=== PATIENT | male | born 1970 | race African-American/Black ===

== ENCOUNTER 2022-01-26 13:05 | Inpatient (IN) | payer OTHER, SELFPAY ==
--- NOTE | 2022-01-26 | ECG_ITS ---
Test Reason : MED CLEARANCE Blood Pressure : / mmHG Vent. Rate : 049 BPM Atrial Rate : 049 BPM P-R Int : 152 ms QRS Dur : 080 ms QT Int : 456 ms P-R-T Axes : 044 065 067 degrees QTc Int : 411 ms Sinus bradycardia Nonspecific T wave abnormality Abnormal ECG No previous ECGs available Referred By: Pat Urena Electronically Signed By:ROMAINE SMILEY MD
[2022-01-26 13:18] VITALS: BP 130/78; PULSE 73; O2SAT 98
--- NOTE | 2022-01-26 13:46 | ED.PSYCH ---
HPI - Psych General Stated Complaint: SI, NON MED COMPLIANT PER EMS Time Seen by Provider: 01/26/22 13:41 Source: patient and EMS Mode of arrival: EMS Limitations: no limitations History of Present Illness HPI Narrative: Patient comes to the emergency room via ambulance. Patient states that he has a lot of financial difficulties. Patient states that yesterday his full check was gone pain pills, patient became very depressed and was considering suicide. Patient drank 2 beers last night, trying to calm his anxiety. He woke up at 3 in the morning complaining of worsening anxiety and suicidal thoughts. This morning, patient went to the Behavioral Health office, where he was Section 12 due to SI statements and sent here by ambulance. Related Data Allergies Allergy/AdvReac Type Severity Reaction Status Date / Time No Known Allergies Allergy Verified 01/26/22 13:53 Review of Systems Review of Systems: Constitutional : No Weight loss, No Fever, No Chills, No Night Sweats, No Fatigue, No Malaise ENT/Mouth : No Hearing loss, No Ear Pain, No Nasal Congestion, No Sinus Pain, No Hoarseness, No sore throat, No Rhinorrhea, No Swallowing Difficulty Eyes: No Eye Pain, No Swelling, No Redness, No Foreign Body, No Discharge, No Vision Changes Cardiovascular : No Chest Pain, No SOB, No Dyspnea on Exertion, No Orthopnea, No Edema, No Palpitations Respiratory : No Cough, No Sputum, No Wheezing, No Smoke Exposure, No Dyspnea Gastrointestinal : No Nausea, No Vomiting, No Diarrhea, No Constipation, No abdominal Pain, No Hematochezia, No Melena Genitourinary : no irregular bleeding, No Dysuria, No Urinary Frequency, No Hematuria, No Urinary Incontinence, No Urgency, No Flank Pain, No Urinary Flow Changes, No Hesitancy Musculoskeletal : No joint pain, No Myalgias, No Joint Swelling Skin : No Skin Lesions, No rash Neuro : No Weakness, No Numbness, No Paresthesias, No Loss of Consciousness, No Dizziness, No Headache Psych : Complaining of anxiety and depression, suicidal ideation, no homicidal ideation Heme/Lymph: No Bruising, No Bleeding,No Lymphadenopathy Endocrine : No Polyuria, No Polydipsia, No Temperature Intolerance PMF Past Medical History Medical History (Updated 01/26/22 @ 13:56 by Pat Urena MD) Anxiety and depression Social History Social History Advance Directives: No Advance Directives Information Provided: Yes Physical Exam Const: Other: Appearance: Alert. Oriented X3. No acute distress. Eyes: Pupils equal, round and reactive to light. ENT: Pharynx normal. Neck: Normal inspection. Neck supple. No lymph nodes noted. No crepitus CVS: Normal heart rate and rhythm. Pulses normal. Normal S1 and S2 Respiratory: No respiratory distress. Breath sounds normal. No Wheezing. No rales Abdomen: Soft and nontender. No rigidity. No distention. Skin: Skin warm and dry. Normal skin color. Normal skin turgor. Extremities: No lower extremity edema. No Lacerations. No Rash Neuro: Oriented X 3. No motor deficit. No sensory deficit. Moving all extremities. No slurred speech. CN 2 through 12 grossly intact Psych: calm, cooperative, normal affect Course Course Course Narrative: Patient with Section 12 in the community. Bed search in progress through Patient remains calm and cooperative. physician observation started at 13:55 Discharge Plan Discharge Clinical Impression: Anxiety and depression, Suicidal ideation Patient Disposition: Still a Patient
[2022-01-26 13:54] VITALS: BP 140/84; PULSE 61; RESP 16; TEMP 36.7; O2SAT 98
[2022-01-26 14:14] LABS: MANUAL DIFF FLAG NO
[2022-01-26 14:17] LABS: Basophils Absolute Auto 0.1 X10*3/uL (0.0-0.2); Basophils Percent Auto 0.7 % (0-2); Eosinophils Absolute Auto 0.4 X10*3/uL (0.0-0.4); Eosinophils Percent Auto 3.2 % (0-4); Hematocrit 44.7 % (42.0-52.0); Hemoglobin 16.2 g/dl (14.0-18.0); Imm Gran Abs Auto 0.03 X10*3/uL (0.00-0.03); Imm Gran Pct Auto 0.3 % (0.0-0.4); Lymphocytes Absolute Auto 2.7 X10*3/uL (1.2-4.9); Lymphocytes Percent Auto 24.9 % (20-40); Mean Corpuscular HGB Conc 36.2 g/dl (31.0-36.0); Mean Corpuscular Hemoglobin 28.4 pg (27.0-33.0); Mean Corpuscular Volume 78.3 fL (80.0-98.0); Mean Platelet Volume 9.8 fL (9.4-12.4); Monocytes Absolute Auto 0.9 X10*3/uL (0.1-1.2); Monocytes Percent Auto 8.1 % (2-11); Neutrophils Absolute Auto 6.8 x10*3/uL (2.0-8.3); Neutrophils Percent Auto 62.8 % (45-73); Platelet Count 195 X10*3/uL (160-400); Red Blood Count 5.71 X10*6/uL (4.60-5.80); Red Cell Distribution Width 14.4 % (11.0-16.0); White Blood Count 10.8 X10*3/uL (4.8-10.8)
[2022-01-26 14:34] LABS: Alanine Aminotransferase 36 U/L (0-40); Albumin Level 4.6 g/dL (3.5-5.0); Alkaline Phosphatase 57 U/L (39-117); Anion Gap 16 (12-20); Aspartate Amino Transferase 48 U/L (5-37); Bilirubin Direct 0.4 mg/dL (0.0-0.5); Bilirubin Total 0.9 mg/dL (0.0-1.0); Blood Urea Nitrogen 10 mg/dL (9-16); COVID-19 Test Negative (Negative); Calcium 9.5 mg/dL (8.4-10.2); Carbon Dioxide 23 mmol/L (22-29); Chloride 103 mmol/L (96-108); Estimated Glomerular Filt Rate > 60; Ethanol < 10 mg/dL; Glucose Random 84 mg/dL (60-115); Potassium 3.7 mmol/L (3.3-5.1); Sodium 138 mmol/L (135-145); Total Protein 7.5 g/dL (6.5-8.0)
[2022-01-26 14:55] LABS: Appearance Urine CLEAR; Color Urine YELLOW; Glucose Urine UA NEG (NEG); Leukocyte Esterase Urine NEG (NEG); Nitrite Urine NEG (NEG); Specific Gravity - Urine <= 1.005 (1.005-1.025); Urine Blood NEG (NEG); Urine Ketones 5 MG/DL (NEG); Urine Protein NEG (NEG-TRACE)
[2022-01-26 15:06] LABS: Amphetamine Screen Urine Not Detected (Not Detect); Barbiturates, Urine Not Detected (Not Detect); Benzodiazepines Screen Urine POSITIVE (Not Detect); Cannabinoid Screen Urine Not Detected (Not Detect); Cocaine Screen Urine POSITIVE (Not Detect); Fentanyl, urine Not Detected (Not Detect); Opiate Screen Urine Not Detected (Not Detect); Phencyclidine Screen Urine Not Detected (Not Detect)
[2022-01-26 16:46] VITALS: RESP 18; BMI 29.5
[2022-01-26 22:00] VITALS: BP 133/68; PULSE 50; RESP 16; TEMP 36.4; O2SAT 97
[2022-01-26] MEDS: Gabapentin 600 MG TABLET PO (22:57)
[2022-01-26] MEDS: cloBAZam 10 MG TABLET PO (23:10)
[2022-01-26] MEDS: levETIRAcetam 1,000 MG TABLET 2000 MG PO (23:10)
--- NOTE | 2022-01-27 00:02 | PC.ADMIT ---
51 year old Male admitted to [facility] for suicidal ideation and an increase in anxiety and depression. Patient stated that he had a plan to walk into traffic or to stop taking his epilepsy medication and have a seizure. Patient Covid negative UTOX positive for cocaine and benzos. Patient reporting elevated anxiety and depression. Patient reports SI+, but contracts for safety. No AH/VH reported. Patient compliant with admission assessment and was pleasant and in behavioral control.
[2022-01-27 09:00] VITALS: BP 129/81; PULSE 72; RESP 20; TEMP 36.6; O2SAT 97
[2022-01-27] MEDS: Pyridoxine HCl (Vitamin B6) 50 MG TABLET 100 MG PO (09:28)
[2022-01-27] MEDS: levETIRAcetam 1,000 MG TABLET 2000 MG PO ×2 (09:28→21:42)
[2022-01-27] MEDS: Escitalopram Oxalate 5 MG TABLET PO (09:29)
[2022-01-27] MEDS: Escitalopram Oxalate 10 MG TABLET PO (09:29)
[2022-01-27] MEDS: Gabapentin 600 MG TABLET PO ×3 (09:29→21:42)
[2022-01-27 10:31] LABS: Vitamin B12 449 pg/mL (200-900)
[2022-01-27] MEDS: gemfibroziL 600 MG TABLET PO ×2 (10:44→21:42)
[2022-01-27 14:01] LABS: Estimated Average Glucose 108 mg/dL; Hemoglobin A1c % 5.4 %
[2022-01-27 14:09] LABS: Cholesterol 166 mg/dL; HDL Cholesterol 47 mg/dL; LDL Cholesterol Calculated 101 mg/dl; Magnesium 2.2 mg/dL (1.6-2.6); Triglycerides 93 mg/dL
--- NOTE | 2022-01-27 14:59 | PC.NURSE ---
Patient offered Nicotine Patch however refused. Informed it was available if he changed his mind.
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
[2022-01-27] MEDS: QUEtiapine Fumarate 25 MG TABLET PO (21:41)
[2022-01-27] MEDS: cloBAZam 10 MG TABLET PO (21:41)
[2022-01-27] MEDS: cloNIDine HCL 0.1 MG TABLET PO (21:42)
[2022-01-27 21:49] VITALS: BP 120/65; PULSE 61; TEMP 36.7; O2SAT 95
[2022-01-28 07:00] VITALS: BMI 29.6
[2022-01-28 08:20] VITALS: BP 144/75; PULSE 50; RESP 16; TEMP 36.3; O2SAT 98
[2022-01-28] MEDS: levETIRAcetam 1,000 MG TABLET 2000 MG PO ×2 (08:41→20:19)
[2022-01-28] MEDS: Escitalopram Oxalate 10 MG TABLET PO (08:42)
[2022-01-28] MEDS: Pyridoxine HCl (Vitamin B6) 50 MG TABLET 100 MG PO (08:42)
[2022-01-28] MEDS: busPIRone HCl 5 MG TABLET PO (08:43)
[2022-01-28] MEDS: Escitalopram Oxalate 5 MG TABLET PO (08:43)
[2022-01-28] MEDS: cloNIDine HCL 0.1 MG TABLET PO ×2 (08:43→20:20)
[2022-01-28] MEDS: gemfibroziL 600 MG TABLET PO ×2 (08:43→20:19)
[2022-01-28] MEDS: Gabapentin 600 MG TABLET PO ×3 (08:45→20:19)
--- NOTE | 2022-01-28 11:33 | MHC.RECOVSUP ---
? Reason for consult:REFERRAL FOR LIFE SCIENCE TEACHER o?? Current location ?[phone] o?? Identified substance use concern ?ALCOHOL ?? Support ? Intervention: o?? Community resources provided o?? Harm reduction discussion ? Plan: o?? Patient to follow up with [facility] after discharge ? Additional information: PT IS A 51YR OLD MALE WHO WAS ADMITTED TO THE HOSPITAL FOR DEPRESSION/ALCOHOL.I WAS ASKED TO SEE PT BY ROSALIE FROM THE CARE TEAM.PT STATED THAT HE IS OVERWHELMED WITH THINGS THAT ARE HAPPENING IN HIS APARTMENT COMPLEX. HE STATES THAT EVERYONE EITHER USES DRUG OR SELL THEM.PT STATES THAT HE IS ALONE MOST OF THE TIME. PT STATED THAT HE GETS BORED AND DECIDES TO HAVE A COUPLE OF DRINKS MAINLY BEER. THEN HE STARTS TO USE CRACK COCAINE. PT THEN STATED THAT BY THE END OF THE MONTH HE IS BORROWING MONEY TO PAY HIS BILL.PT WANTS TO GET A NEW APARTMENT OUT OF THAT AREA. THIS LIFE SCIENCE TEACHER WAS ABLE TO GIVE PT SOME SUGGESTION ON HOW HE CAN FIND NEW THINGS TO DO .ONE WAS TO VISITED [facility] SUPPORT PROGRAM IN [facility]. THIS LIFE SCIENCE TEACHER WILL MAKE A REFERRAL FOR PT TO HAVE A LIFE SCIENCE TEACHER.ALSO GAVE HIM SOME RESOURCES AND INFORMATION. ?
--- NOTE | 2022-01-28 13:06 | P.PNPSI_ITS ---
Subjective Subjective Date of Service: 01/28/22 Reason For Visit: Depression, SI Interim History: affable, grateful. eating, sleeping, getting along with others well. planning for tuesday discharge. states he had a visit from a manager recovery this morning, about which he is excited. per staff, denies anx/dep, SI/HI/AVH. attending groups. Mental Status Exam Mental Status Exam Narrative: calm, cooperative. no PMA/PMR. hospital clothes. speech soft, nml rate and amount. flattened tone. thoughts linear and logical without evidence of delusions or paranoia. affect more flexible, normo-intense, non-labile. mood improved. no SI/HI/AVH expressed. Diagnostics Vital Signs (24Hr): Vital Signs - 24 hr 01/27/22 21:49 01/28/22 08:20 Temperature 98.0 F 97.4 F Pulse Rate 61 50 Respiratory Rate 16 Blood Pressure 120/65 144/75 H Pulse Oximetry 95 98 Oxygen Delivery Method Room Air Room Air BMI result Body Mass Index 29.6 Labs Results: 01/26/22 14:10 01/26/22 14:10 Labs: Laboratory Results - last 48 hr 01/26/22 01/26/22 01/26/22 14:10 14:10 14:10 WBC 10.8 RBC 5.71 Hgb 16.2 Hct 44.7 MCV 78.3 L MCH 28.4 MCHC 36.2 H RDW 14.4 Plt Count 195 MPV 9.8 Immature Gran % (Auto) 0.3 Neut % (Auto) 62.8 Lymph % (Auto) 24.9 [place] % (Auto) 8.1 Eos % (Auto) 3.2 Baso % (Auto) 0.7 Lymph # (Auto) 2.7 [place] # (Auto) 0.9 Eos # (Auto) 0.4 Baso # (Auto) 0.1 Abs Immat Gran (auto) 0.03 Absolute Neuts (auto) 6.8 Absolute Nucleated RBC 0.000 Nucleated RBC % (auto) 0.0 Sodium 138 Potassium 3.7 Chloride 103 Carbon Dioxide 23 Anion Gap 16 BUN 10 Creatinine 1.17 Estim Creat Clear Calc TNP Estimated GFR > 60 Random Glucose 84 Estimat Average Glucose Hemoglobin A1c % Calcium 9.5 Magnesium 2.0 Total Bilirubin 0.9 Direct Bilirubin 0.4 AST 48 H ALT 36 Alkaline Phosphatase 57 Total Protein 7.5 Albumin 4.6 Triglycerides Cholesterol LDL Cholesterol, Calc HDL Cholesterol Vitamin B12 Folate TSH Free T4 Urine Color Urine Appearance Urine pH Ur Specific [place] Urine Protein Urine Glucose (UA) Urine Ketones Urine Blood Urine Nitrite Ur Leukocyte Esterase Urine Opiates Screen Urine Fentanyl Screen Ur Barbiturates Screen Ur Phencyclidine Scrn Ur Amphetamines Screen U Benzodiazepines Scrn Urine Cocaine Screen U Marijuana (THC) Screen Ethyl Alcohol < 10 COVID-19 ([facility]) Negative COVID-19 Clin Com See Note 01/26/22 01/26/22 01/27/22 14:45 14:45 08:52 WBC RBC Hgb Hct MCV MCH MCHC RDW Plt Count MPV Immature Gran % (Auto) Neut % (Auto) Lymph % (Auto) [place] % (Auto) Eos % (Auto) Baso % (Auto) Lymph # (Auto) [place] # (Auto) Eos # (Auto) Baso # (Auto) Abs Immat Gran (auto) Absolute Neuts (auto) Absolute Nucleated RBC Nucleated RBC % (auto) Sodium Potassium Chloride Carbon Dioxide Anion Gap BUN Creatinine Estim Creat Clear Calc Estimated GFR Random Glucose Estimat Average Glucose 108 Hemoglobin A1c % 5.4 Calcium Magnesium Total Bilirubin Direct Bilirubin AST ALT Alkaline Phosphatase Total Protein Albumin Triglycerides Cholesterol LDL Cholesterol, Calc HDL Cholesterol Vitamin B12 Folate TSH Free T4 Urine Color YELLOW Urine Appearance CLEAR Urine pH 6.0 Ur Specific [place] <= 1.005 Urine Protein NEG Urine Glucose (UA) NEG Urine Ketones 5 Urine Blood NEG Urine Nitrite NEG Ur Leukocyte Esterase NEG Urine Opiates Screen Not Detected Urine Fentanyl Screen Not Detected Ur Barbiturates Screen Not Detected Ur Phencyclidine Scrn Not Detected Ur Amphetamines Screen Not Detected U Benzodiazepines Scrn POSITIVE H Urine Cocaine Screen POSITIVE H U Marijuana (THC) Screen Not Detected Ethyl Alcohol COVID-19 ([facility]ANCE) COVID-19 Clin Com 01/27/22 01/27/22 08:52 08:52 WBC RBC Hgb Hct MCV MCH MCHC RDW Plt Count MPV Immature Gran % (Auto) Neut % (Auto) Lymph % (Auto) [place] % (Auto) Eos % (Auto) Baso % (Auto) Lymph # (Auto) [place] # (Auto) Eos # (Auto) Baso # (Auto) Abs Immat Gran (auto) Absolute Neuts (auto) Absolute Nucleated RBC Nucleated RBC % (auto) Sodium Potassium Chloride Carbon Dioxide Anion Gap BUN Creatinine Estim Creat Clear Calc Estimated GFR Random Glucose Estimat Average Glucose Hemoglobin A1c % Calcium Magnesium 2.2 Total Bilirubin Direct Bilirubin AST ALT Alkaline Phosphatase Total Protein Albumin Triglycerides 93 Cholesterol 166 LDL Cholesterol, Calc 101 HDL Cholesterol 47 Vitamin B12 449 Folate 5.0 TSH 0.50 Free T4 0.90 Urine Color Urine Appearance Urine pH Ur Specific [place] Urine Protein Urine Glucose (UA) Urine Ketones Urine Blood Urine Nitrite Ur Leukocyte Esterase Urine Opiates Screen Urine Fentanyl Screen Ur Barbiturates Screen Ur Phencyclidine Scrn Ur Amphetamines Screen U Benzodiazepines Scrn Urine Cocaine Screen U Marijuana (THC) Screen Ethyl Alcohol COVID-19 ([facility]) COVID-19 Clin Com Medications Medications Current Medications Acetaminophen (Acetaminophen 325 Mg Tablet) 650 mg PO Q6H PRN PRN Reason: Headache/Pain Mild Scale (1-3) Al Hydroxide/Mg Hydroxide (Magnesium Hydrox/Alum Hydrox 30 Ml Oral.Susp) 30 ml PO Q6H PRN PRN Reason: Heartburn/Nausea Buspirone HCl (Buspirone Hcl 5 Mg Tablet) 5 mg PO DAILY ON LICENSE OF [facility] Last Admin: 01/28/22 08:43 Dose: 5 mg Clobazam (Clobazam 10 Mg Tablet) 10 mg PO BEDTIME ON LICENSE OF [facility] Last Admin: 01/27/22 21:41 Dose: 10 mg Clonidine HCl (Clonidine Hcl 0.1 Mg Tablet) 0.1 mg PO Q4H PRN; Protocol PRN Reason: Anxiety Clonidine HCl (Clonidine Hcl 0.1 Mg Tablet) 0.1 mg PO BID ON LICENSE OF [facility]; Protocol Last Admin: 01/28/22 08:43 Dose: 0.1 mg Escitalopram Oxalate (Escitalopram Oxalate 5 Mg Tablet) 5 mg PO DAILY ON LICENSE OF [facility] Last Admin: 01/28/22 08:43 Dose: 5 mg Escitalopram Oxalate (Escitalopram Oxalate 10 Mg Tablet) 10 mg PO DAILY ON LICENSE OF [facility] Last Admin: 01/28/22 08:42 Dose: 10 mg Gabapentin (Gabapentin 600 Mg Tablet) 600 mg PO TID ON LICENSE OF [facility] Last Admin: 01/28/22 08:45 Dose: 600 mg Gemfibrozil (Gemfibrozil 600 Mg Tablet) 600 mg PO BID ON LICENSE OF [facility] Last Admin: 01/28/22 08:43 Dose: 600 mg Levetiracetam (Levetiracetam 1,000 Mg Tablet) 2,000 mg PO BID ON LICENSE OF [facility] Last Admin: 01/28/22 08:41 Dose: 2,000 mg Magnesium Hydroxide (Milk Of Magnesia 30 Ml Oral.Susp) 30 ml PO DAILY PRN PRN Reason: Constipation Nicotine (Nicotine 21 Mg Patch.Td24) 21 mg TRANSDERMA DAILY ON LICENSE OF [facility] Last Admin: 01/28/22 08:47 Dose: Not Given Pyridoxine HCl (Pyridoxine Hcl (Vitamin B6) 50 Mg Tablet) 100 mg PO DAILY ON LICENSE OF [facility] Last Admin: 01/28/22 08:42 Dose: 100 mg Quetiapine Fumarate (Quetiapine Fumarate 25 Mg Tablet) 25 mg PO BEDTIME ON LICENSE OF [facility] Last Admin: 01/27/22 21:41 Dose: 25 mg Trazodone HCl (Trazodone Hcl 50 Mg Tablet) 50 mg PO BEDTIME PRN PRN Reason: Insomnia Allergies Allergies Allergy/AdvReac Type Severity Reaction Status Date / Time peanut AdvReac Hives Verified 01/26/22 17:47 Assessment & Plan Assessment & Plan (1) Anxiety and depression: Status: Acute Code(s): F41.9 - Anxiety disorder, unspecified; F32.A - Depression, unspecified (2) Cocaine use disorder: Status: Acute Code(s): F14.10 - Cocaine abuse, uncomplicated Plan restart home medications regimen. not interested in rehab. wants to discharge once stable to return to outpt care and get a manager recovery. I spent __25____ minutes with the patient and/or on the patient floor today, greater than?50% of which was spent counseling/coordinating care. Reason for contiued inpatient stay Substantial Risk for: inability to function and rapid decompensation
[2022-01-28 20:00] VITALS: BP 124/71; PULSE 53; TEMP 36.6; O2SAT 95
[2022-01-28] MEDS: cloBAZam 10 MG TABLET PO (20:20)
[2022-01-28] MEDS: QUEtiapine Fumarate 25 MG TABLET PO (20:20)
[2022-01-29 08:53] VITALS: BP 126/77; PULSE 59; TEMP 36.6; O2SAT 96
[2022-01-29] MEDS: levETIRAcetam 1,000 MG TABLET 2000 MG PO ×2 (08:54→22:23)
[2022-01-29] MEDS: Escitalopram Oxalate 10 MG TABLET PO (08:55)
[2022-01-29] MEDS: Pyridoxine HCl (Vitamin B6) 50 MG TABLET 100 MG PO (08:55)
[2022-01-29] MEDS: Escitalopram Oxalate 5 MG TABLET PO (08:55)
[2022-01-29] MEDS: Gabapentin 600 MG TABLET PO ×3 (08:55→22:23)
[2022-01-29] MEDS: busPIRone HCl 5 MG TABLET PO (08:56)
[2022-01-29] MEDS: cloNIDine HCL 0.1 MG TABLET PO ×2 (08:56→22:23)
[2022-01-29] MEDS: gemfibroziL 600 MG TABLET PO ×2 (08:56→22:23)
--- NOTE | 2022-01-29 13:34 | HO.PSYCHPN ---
Subjective Subjective Date of Service: 01/29/22 Reason For Visit: Depression, SI Interim History: calm, cooperative, friendly, grateful. frustrated he may not be able to make any progress on getting into a new apartment while he is here due to his designated agent's not having access to his mailbox to help forward some documents. would like to discharge tuesday as that is the deadline for his application. feels meds are good as they are. no other complaints or requests. per staff, saw addictions recovery specialist yesterday. taking meds, napping. feeling refreshed. slept well last NOC. Mental Status Exam Mental Status Exam Narrative: calm, cooperative. no PMA/PMR. street clothes. speech nml loudness, nml rate, and nml amount. nml tone. thoughts linear and logical without evidence of delusions or paranoia. affect full range, normo-intense, non-labile. mood improved. no SI/HI/AVH expressed. Diagnostics Vital Signs (24Hr): Vital Signs - 24 hr 01/28/22 20:00 01/29/22 08:53 Temperature 97.8 F 97.8 F Pulse Rate 53 59 Blood Pressure 124/71 126/77 Pulse Oximetry 95 96 Oxygen Delivery Method Room Air Room Air BMI result Body Mass Index 29.6 Labs Results: 01/26/22 14:10 01/26/22 14:10 Labs: Laboratory Results - last 48 hr 01/27/22 01/27/22 08:52 08:52 Estimat Average Glucose 108 Hemoglobin A1c % 5.4 Magnesium 2.2 Triglycerides 93 Cholesterol 166 LDL Cholesterol, Calc 101 HDL Cholesterol 47 TSH 0.50 Free T4 0.90 Medications Medications Current Medications Acetaminophen (Acetaminophen 325 Mg Tablet) 650 mg PO Q6H PRN PRN Reason: Headache/Pain Mild Scale (1-3) Al Hydroxide/Mg Hydroxide (Magnesium Hydrox/Alum Hydrox 30 Ml Oral.Susp) 30 ml PO Q6H PRN PRN Reason: Heartburn/Nausea Buspirone HCl (Buspirone Hcl 5 Mg Tablet) 5 mg PO DAILY [facility] Last Admin: 01/29/22 08:56 Dose: 5 mg Clobazam (Clobazam 10 Mg Tablet) 10 mg PO BEDTIME [facility] Last Admin: 01/28/22 20:20 Dose: 10 mg Clonidine HCl (Clonidine Hcl 0.1 Mg Tablet) 0.1 mg PO Q4H PRN; Protocol PRN Reason: Anxiety Clonidine HCl (Clonidine Hcl 0.1 Mg Tablet) 0.1 mg PO BID [facility]; Protocol Last Admin: 01/29/22 08:56 Dose: 0.1 mg Escitalopram Oxalate (Escitalopram Oxalate 5 Mg Tablet) 5 mg PO DAILY [facility] Last Admin: 01/29/22 08:55 Dose: 5 mg Escitalopram Oxalate (Escitalopram Oxalate 10 Mg Tablet) 10 mg PO DAILY [facility] Last Admin: 01/29/22 08:55 Dose: 10 mg Gabapentin (Gabapentin 600 Mg Tablet) 600 mg PO TID [facility] Last Admin: 01/29/22 08:55 Dose: 600 mg Gemfibrozil (Gemfibrozil 600 Mg Tablet) 600 mg PO BID [facility] Last Admin: 01/29/22 08:56 Dose: 600 mg Levetiracetam (Levetiracetam 1,000 Mg Tablet) 2,000 mg PO BID [facility] Last Admin: 01/29/22 08:54 Dose: 2,000 mg Magnesium Hydroxide (Milk Of Magnesia 30 Ml Oral.Susp) 30 ml PO DAILY PRN PRN Reason: Constipation Nicotine (Nicotine 21 Mg Patch.Td24) 21 mg TRANSDERMA DAILY [facility] Last Admin: 01/29/22 09:24 Dose: Not Given Pyridoxine HCl (Pyridoxine Hcl (Vitamin B6) 50 Mg Tablet) 100 mg PO DAILY [facility] Last Admin: 01/29/22 08:55 Dose: 100 mg Quetiapine Fumarate (Quetiapine Fumarate 25 Mg Tablet) 25 mg PO BEDTIME [facility] Last Admin: 01/28/22 20:20 Dose: 25 mg Trazodone HCl (Trazodone Hcl 50 Mg Tablet) 50 mg PO BEDTIME PRN PRN Reason: Insomnia Allergies Allergies Allergy/AdvReac Type Severity Reaction Status Date / Time peanut AdvReac Hives Verified 01/26/22 17:47 Assessment & Plan Assessment & Plan (1) Anxiety and depression: Status: Acute Code(s): F41.9 - Anxiety disorder, unspecified; F32.A - Depression, unspecified (2) Cocaine use disorder: Status: Acute Code(s): F14.10 - Cocaine abuse, uncomplicated Plan restarted home medications regimen. not interested in rehab. wants to discharge tuesday to return to outpt care and get a addictions recovery specialist. I spent ___25___ minutes with the patient and/or on the patient floor today, greater than?50% of which was spent counseling/coordinating care. Reason for contiued inpatient stay Substantial Risk for: inability to function and rapid decompensation
[2022-01-29 18:00] VITALS: BP 135/76; PULSE 52; RESP 16; TEMP 36.3; O2SAT 99
[2022-01-29 22:13] VITALS: BP 127/60; PULSE 54; RESP 16; TEMP 36.3; O2SAT 96
[2022-01-29] MEDS: QUEtiapine Fumarate 25 MG TABLET PO (22:23)
[2022-01-29] MEDS: cloBAZam 10 MG TABLET PO (22:23)
[2022-01-30 08:35] VITALS: BP 142/77; PULSE 77; RESP 18; TEMP 36.3; O2SAT 98
[2022-01-30] MEDS: Escitalopram Oxalate 10 MG TABLET PO (08:48)
[2022-01-30] MEDS: levETIRAcetam 1,000 MG TABLET 2000 MG PO ×2 (08:48→22:39)
[2022-01-30] MEDS: gemfibroziL 600 MG TABLET PO ×2 (08:48→22:39)
[2022-01-30] MEDS: Escitalopram Oxalate 5 MG TABLET PO (08:48)
[2022-01-30] MEDS: Gabapentin 600 MG TABLET PO ×3 (08:49→22:39)
[2022-01-30] MEDS: Pyridoxine HCl (Vitamin B6) 50 MG TABLET 100 MG PO (08:49)
[2022-01-30] MEDS: cloNIDine HCL 0.1 MG TABLET PO ×2 (08:49→22:39)
[2022-01-30] MEDS: busPIRone HCl 5 MG TABLET PO (08:49)
--- NOTE | 2022-01-30 15:35 | P.PNPSI_ITS ---
Subjective Subjective Date of Service: 01/30/22 Reason For Visit: Depression, SI Interim History: Patient seen. Discussed with team. He is anxius about discharge Tuesday because he has to complee housing paperwork and the deadline is then. He feels improved in general. Says he wants to move out from where he lives because there is bad influence and he relapses on drugs. Tolerating medications and feels medications are helpful. Denies SI. Medication Compliance: Yes Side effects from medications: No Attending Groups: Yes Review of Systems Review of Systems Constitutional : No Weight loss, No Fever, No Chills, No Night Sweats, No Fatig ue, No Malaise ENT/Mouth : No Hearing loss, No Ear Pain, No Nasal Congestion, No Sinus Pain, No Hoarseness, No sore throat, No Rhinorrhea, No Swallowing Difficulty Eyes: No Eye Pain, No Swelling, No Redness, No Foreign Body, No Discharge, No Vision Changes Cardiovascular : No Chest Pain, No SOB, No Dyspnea on Exertion, No Orthopnea, No Edema, No Palpitations Respiratory : No Cough, No Sputum, No Wheezing, No Smoke Exposure, No Dyspnea Gastrointestinal : No Nausea, No Vomiting, No Diarrhea, No Constipation, No abdominal Pain, No Hematochezia, No Melena Genitourinary : no irregular bleeding, No Dysuria, No Urinary Frequency, No Hematuria, No Urinary Incontinence, No Urgency, No Flank Pain, No Urinary Flow Changes, No Hesitancy Musculoskeletal : No joint pain, No Myalgias, No Joint Swelling Skin : No Skin Lesions, No rash Neuro : No Weakness, No Numbness, No Paresthesias, No Loss of Consciousness, No Dizziness, No Headache Psych : Complaining of anxiety and depression, suicidal ideation, no homicidal ideation Heme/Lymph: No Bruising, No Bleeding,No Lymphadenopathy Endocrine : No Polyuria, No Polydipsia, No Temperature Intolerance Mental Status Exam Mental Status Exam Narrative: calm, cooperative. no PMA/PMR. street clothes. speech nml loudness, nml rate, and nml amount. nml tone. thoughts linear and logical without evidence of delusions or paranoia. affect full range, normo-intense, non-labile. mood improved. no SI/HI/AVH expressed. Diagnostics Vital Signs (24Hr): Vital Signs - 24 hr 01/29/22 22:13 01/30/22 08:35 Temperature 97.4 F 97.3 F Pulse Rate 54 77 Respiratory Rate 16 18 Blood Pressure 127/60 142/77 H Pulse Oximetry 96 98 Oxygen Delivery Method Room Air Room Air BMI result Body Mass Index 29.6 Labs Results: 01/26/22 14:10 01/26/22 14:10 Medications Medications Current Medications Acetaminophen (Acetaminophen 325 Mg Tablet) 650 mg PO Q6H PRN PRN Reason: Headache/Pain Mild Scale (1-3) Al Hydroxide/Mg Hydroxide (Magnesium Hydrox/Alum Hydrox 30 Ml Oral.Susp) 30 ml PO Q6H PRN PRN Reason: Heartburn/Nausea Buspirone HCl (Buspirone Hcl 5 Mg Tablet) 5 mg PO DAILY [facility] Last Admin: 01/30/22 08:49 Dose: 5 mg Clobazam (Clobazam 10 Mg Tablet) 10 mg PO BEDTIME [facility] Last Admin: 01/29/22 22:23 Dose: 10 mg Clonidine HCl (Clonidine Hcl 0.1 Mg Tablet) 0.1 mg PO Q4H PRN; Protocol PRN Reason: Anxiety Clonidine HCl (Clonidine Hcl 0.1 Mg Tablet) 0.1 mg PO BID [facility]; Protocol Last Admin: 01/30/22 08:49 Dose: 0.1 mg Escitalopram Oxalate (Escitalopram Oxalate 5 Mg Tablet) 5 mg PO DAILY [facility] Last Admin: 01/30/22 08:48 Dose: 5 mg Escitalopram Oxalate (Escitalopram Oxalate 10 Mg Tablet) 10 mg PO DAILY [facility] Last Admin: 01/30/22 08:48 Dose: 10 mg Gabapentin (Gabapentin 600 Mg Tablet) 600 mg PO TID [facility] Last Admin: 01/30/22 14:40 Dose: 600 mg Gemfibrozil (Gemfibrozil 600 Mg Tablet) 600 mg PO BID [facility] Last Admin: 01/30/22 08:48 Dose: 600 mg Levetiracetam (Levetiracetam 1,000 Mg Tablet) 2,000 mg PO BID [facility] Last Admin: 01/30/22 08:48 Dose: 2,000 mg Magnesium Hydroxide (Milk Of Magnesia 30 Ml Oral.Susp) 30 ml PO DAILY PRN PRN Reason: Constipation Nicotine (Nicotine 21 Mg Patch.Td24) 21 mg TRANSDERMA DAILY [facility] Last Admin: 01/30/22 11:32 Dose: Not Given Pyridoxine HCl (Pyridoxine Hcl (Vitamin B6) 50 Mg Tablet) 100 mg PO DAILY [facility] Last Admin: 01/30/22 08:49 Dose: 100 mg Quetiapine Fumarate (Quetiapine Fumarate 25 Mg Tablet) 25 mg PO BEDTIME [facility] Last Admin: 01/29/22 22:23 Dose: 25 mg Trazodone HCl (Trazodone Hcl 50 Mg Tablet) 50 mg PO BEDTIME PRN PRN Reason: Insomnia Allergies Allergies Allergy/AdvReac Type Severity Reaction Status Date / Time peanut AdvReac Hives Verified 01/26/22 17:47 Assessment & Plan Assessment & Plan (1) Anxiety and depression: Status: Acute Code(s): F41.9 - Anxiety disorder, unspecified; F32.A - Depression, unspecified (2) Cocaine use disorder: Status: Acute Code(s): F14.10 - Cocaine abuse, uncomplicated Plan restarted home medications regimen. not interested in rehab. wants to discharge tuesday to return to outpt care and get a tissue recovery technician. 01/30: Continue treatment plan. I spent minutes with the patient and/or on the patient floor today, greater than?50% of which was spent counseling/coordinating care. Reason for contiued inpatient stay Substantial Risk for: inability to function and rapid decompensation
[2022-01-30 22:35] VITALS: BP 136/67; PULSE 63; RESP 18; O2SAT 100
[2022-01-30] MEDS: cloBAZam 10 MG TABLET PO (22:39)
[2022-01-30] MEDS: QUEtiapine Fumarate 25 MG TABLET PO (22:39)
[2022-01-31 08:30] VITALS: BP 137/72; PULSE 57; RESP 18; TEMP 36.3; O2SAT 100
[2022-01-31] MEDS: Pyridoxine HCl (Vitamin B6) 50 MG TABLET 100 MG PO (08:40)
[2022-01-31] MEDS: cloNIDine HCL 0.1 MG TABLET PO ×2 (08:40→20:58)
[2022-01-31] MEDS: Escitalopram Oxalate 10 MG TABLET PO (08:41)
[2022-01-31] MEDS: Escitalopram Oxalate 5 MG TABLET PO (08:41)
[2022-01-31] MEDS: busPIRone HCl 5 MG TABLET PO (08:41)
[2022-01-31] MEDS: gemfibroziL 600 MG TABLET PO ×2 (08:41→20:58)
[2022-01-31] MEDS: levETIRAcetam 1,000 MG TABLET 2000 MG PO ×2 (08:42→20:58)
[2022-01-31] MEDS: Gabapentin 600 MG TABLET PO ×3 (08:42→20:58)
--- NOTE | 2022-01-31 14:50 | HO.PSYCHPN ---
Subjective Subjective Date of Service: 01/31/22 Reason For Visit: Depression, SI Interim History: Patient seen. Discussed with team. Says he is trying to hang in there. Worried about whether his proof of income is in his mail. Worried that [employer] worker receives his proof of income in time and that he will be able to take care of all that needs to be done to change housing when he is discharged tomorrow. He feels improved in general. Feels medications are helpful. Denies SI. Review of Systems Review of Systems Constitutional : No Weight loss, No Fever, No Chills, No Night Sweats, No Fatigue, No Malaise ENT/Mouth : No Hearing loss, No Ear Pain, No Nasal Congestion, No Sinus Pain, No Hoarseness, No sore throat, No Rhinorrhea, No Swallowing Difficulty Eyes: No Eye Pain, No Swelling, No Redness, No Foreign Body, No Discharge, No Vision Changes Cardiovascular : No Chest Pain, No SOB, No Dyspnea on Exertion, No Orthopnea, No Edema, No Palpitations Respiratory : No Cough, No Sputum, No Wheezing, No Smoke Exposure, No Dyspnea Gastrointestinal : No Nausea, No Vomiting, No Diarrhea, No Constipation, No abdominal Pain, No Hematochezia, No Melena Genitourinary : no irregular bleeding, No Dysuria, No Urinary Frequency, No Hematuria, No Urinary Incontinence, No Urgency, No Flank Pain, No Urinary Flow Changes, No Hesitancy Musculoskeletal : No joint pain, No Myalgias, No Joint Swelling Skin : No Skin Lesions, No rash Neuro : No Weakness, No Numbness, No Paresthesias, No Loss of Consciousness, No Dizziness, No Headache Psych : Complaining of anxiety and depression, suicidal ideation, no homicidal ideation Heme/Lymph: No Bruising, No Bleeding,No Lymphadenopathy Endocrine : No Polyuria, No Polydipsia, No Temperature Intolerance Mental Status Exam Mental Status Exam Narrative: calm, cooperative. no PMA/PMR. street clothes. speech nml loudness, nml rate, and nml amount. nml tone. thoughts linear and logical without evidence of delusions or paranoia. affect full range, normo-intense, non-labile. mood improved. no SI/HI/AVH expressed. Diagnostics Vital Signs (24Hr): Vital Signs - 24 hr 01/30/22 22:35 01/31/22 08:30 Temperature 97.3 F Pulse Rate 63 57 Respiratory Rate 18 18 Blood Pressure 136/67 137/72 Pulse Oximetry 100 100 Oxygen Delivery Method Room Air Room Air BMI result Body Mass Index 29.6 Labs Results: 01/26/22 14:10 01/26/22 14:10 Medications Medications Current Medications Acetaminophen (Acetaminophen 325 Mg Tablet) 650 mg PO Q6H PRN PRN Reason: Headache/Pain Mild Scale (1-3) Al Hydroxide/Mg Hydroxide (Magnesium Hydrox/Alum Hydrox 30 Ml Oral.Susp) 30 ml PO Q6H PRN PRN Reason: Heartburn/Nausea Buspirone HCl (Buspirone Hcl 5 Mg Tablet) 5 mg PO DAILY [facility] Last Admin: 01/31/22 08:41 Dose: 5 mg Clobazam (Clobazam 10 Mg Tablet) 10 mg PO BEDTIME [facility] Last Admin: 01/30/22 22:39 Dose: 10 mg Clonidine HCl (Clonidine Hcl 0.1 Mg Tablet) 0.1 mg PO Q4H PRN; Protocol PRN Reason: Anxiety Clonidine HCl (Clonidine Hcl 0.1 Mg Tablet) 0.1 mg PO BID [facility]; Protocol Last Admin: 01/31/22 08:40 Dose: 0.1 mg Escitalopram Oxalate (Escitalopram Oxalate 5 Mg Tablet) 5 mg PO DAILY [facility] Last Admin: 01/31/22 08:41 Dose: 5 mg Escitalopram Oxalate (Escitalopram Oxalate 10 Mg Tablet) 10 mg PO DAILY [facility] Last Admin: 01/31/22 08:41 Dose: 10 mg Gabapentin (Gabapentin 600 Mg Tablet) 600 mg PO TID [facility] Last Admin: 01/31/22 14:34 Dose: 600 mg Gemfibrozil (Gemfibrozil 600 Mg Tablet) 600 mg PO BID [facility] Last Admin: 01/31/22 08:41 Dose: 600 mg Levetiracetam (Levetiracetam 1,000 Mg Tablet) 2,000 mg PO BID [facility] Last Admin: 01/31/22 08:42 Dose: 2,000 mg Magnesium Hydroxide (Milk Of Magnesia 30 Ml Oral.Susp) 30 ml PO DAILY PRN PRN Reason: Constipation Nicotine (Nicotine 21 Mg Patch.Td24) 21 mg TRANSDERMA DAILY [facility] Last Admin: 01/31/22 12:09 Dose: Not Given Pyridoxine HCl (Pyridoxine Hcl (Vitamin B6) 50 Mg Tablet) 100 mg PO DAILY [facility] Last Admin: 01/31/22 08:40 Dose: 100 mg Quetiapine Fumarate (Quetiapine Fumarate 25 Mg Tablet) 25 mg PO BEDTIME [facility] Last Admin: 01/30/22 22:39 Dose: 25 mg Trazodone HCl (Trazodone Hcl 50 Mg Tablet) 50 mg PO BEDTIME PRN PRN Reason: Insomnia Allergies Allergies Allergy/AdvReac Type Severity Reaction Status Date / Time peanut AdvReac Hives Verified 01/26/22 17:47 Assessment & Plan Assessment & Plan (1) Anxiety and depression: Status: Acute Code(s): F41.9 - Anxiety disorder, unspecified; F32.A - Depression, unspecified (2) Cocaine use disorder: Status: Acute Code(s): F14.10 - Cocaine abuse, uncomplicated Plan restarted home medications regimen. not interested in rehab. wants to discharge tuesday to return to out care and get a riding coach. 01/30: Continue treatment plan. 01/31: Continue treatment plan. I spent minutes with the patient and/or on the patient floor today, greater than?50% of which was spent counseling/coordinating care. Reason for contiued inpatient stay Substantial Risk for: harm to self and inability to function
[2022-01-31 20:00] VITALS: BP 123/65; PULSE 54; RESP 16; TEMP 36.6; O2SAT 99
[2022-01-31] MEDS: QUEtiapine Fumarate 25 MG TABLET PO (20:58)
[2022-01-31] MEDS: cloBAZam 10 MG TABLET PO (20:58)
[2022-02-01 08:15] VITALS: BP 124/71; PULSE 50; RESP 16; TEMP 36.4; O2SAT 100
[2022-02-01] MEDS: Escitalopram Oxalate 5 MG TABLET PO (08:19)
[2022-02-01] MEDS: levETIRAcetam 1,000 MG TABLET 2000 MG PO (08:19)
[2022-02-01] MEDS: gemfibroziL 600 MG TABLET PO (08:19)
[2022-02-01] MEDS: Gabapentin 600 MG TABLET PO (08:20)
[2022-02-01] MEDS: Escitalopram Oxalate 10 MG TABLET PO (08:20)
[2022-02-01] MEDS: cloNIDine HCL 0.1 MG TABLET PO (08:21)
[2022-02-01] MEDS: Pyridoxine HCl (Vitamin B6) 50 MG TABLET 100 MG PO (08:21)
[2022-02-01] MEDS: busPIRone HCl 5 MG TABLET PO (08:21)
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
== END 2022-02-01 13:00 | disposition home or self-care (01) | DRG 754 ==
LOC: HO.ED 16:15 → HO.PADLT16 21:37
PROVIDERS: Admitting Provider Registered Nurse; Emergency Provider Emergency Medicine; Visit Provider Psychiatry & Neurology Psychiatry
DX: F32.A Depression, unspecified (principal); R45.851 Suicidal ideations; F14.10 Cocaine abuse, uncomplicated; F17.210 Nicotine dependence, cigarettes, uncomplicated; F41.9 Anxiety disorder, unspecified; Z71.6 Tobacco abuse counseling; Z20.822 Contact with and (suspected) exposure to COVID-19; Z79.899 Other long term (current) drug therapy
CPT/HCPCS: 36415; 80048; 80061; 80076; 80307; 81003; 82077; 82607; 82746; 83036; 83735; 84439; 84443; 85025; 87635; 93005; 99285